=== PATIENT | female | born 1955 | race Hispanic/Latino ===

== ENCOUNTER 2020-11-22 21:03 | Observation (INO) | payer MEDICARE, OTHER ==
[~2020-11-22] VITALS: Ht 157.5 cm; Wt 75.2 kg
[2020-11-22 22:31] VITALS: BP 159/72
[2020-11-22 22:52] LABS: BILIRUBIN,URINE Negative (NEGATIVE); COLOR,URINE Dark Yellow (YELLOW); GLUCOSE, URINE (UA) Negative (NEGATIVE); KETONES,URINE Trace mg/dL (NEGATIVE); LEUKOCYTE ESTERASE ,URINE Trace (NEGATIVE); NITRATE,URINE Negative (NEGATIVE); OCCULT BLOOD,URINE Negative (NEGATIVE); PROTEIN,URINE Negative (NEGATIVE)
[2020-11-22] MEDS ORDERED: LACTATED RINGERS 1000ML 1,500 ML IV ONE (23:00)
[2020-11-22 23:06] LABS: APPEARANCE,URINE HAZY (CLEAR)
[2020-11-22 23:15] LABS: BACTERIA,URINE Rare /HPF (None Seen); MUCUS,URINE Few LPF (None Seen); RBC,URINE 0-1 /HPF (0-1); SQUAMOUS EPITHELIAL CELL,UR 0-2 /HPF (0-2)
[2020-11-22] MEDS ORDERED: IOHEXOL-350 75 ML VIAL IV ONE (23:28)
[2020-11-22 23:30] LABS: BASOPHILS % (AUTO) 0.7 % (0.0-5.0); EOSINOPHILS % (AUTO) 1.7 % (0.0-8.0); HEMATOCRIT 35.8 % (36-48); LYMPHOCYTES % (AUTO) 28.3 % (21.0-51.0); MEAN CORPUSCULAR HEMOGLOBIN 28.2 pg (27.0-33.0); MEAN CORPUSCULAR HGB CONC 33.2 g/dL (32.0-36.0); MEAN CORPUSCULAR VOLUME 84.8 fL (79-99); MONOCYTES % (AUTO) 6.5 % (3.0-13.0); NEUTROPHILS % (AUTO) 62.6 % (40.0-77.0); PLATELET COUNT (AUTO) 237 K/uL (130-400); RED BLOOD CELL COUNT(AUTO) 4.22 MIL/uL (4.00-5.50); RED CELL DISTRIBUTION WIDTH 12.9 % (11.0-15.5); WHITE BLOOD COUNT (AUTO) 8.7 K/uL (4.8-10.8)
[2020-11-22 23:47] LABS: CREATININE 0.5 mg/dL (0.5-1.5); POTASSIUM 3.6 mmol/L (3.5-5.1)
[2020-11-22 23:51] LABS: ALBUMIN 3.8 g/dL (3.5-5.0); BILIRUBIN,TOTAL 0.4 mg/dL (0.2-1.0); CRP QUANTITATIVE 3.7 mg/L (0.00-9.0); MAGNESIUM 1.9 mg/dL (1.80-2.40); TOTAL PROTEIN, SERUM 8.3 g/dL (6.0-8.3)
[2020-11-23] VITALS (9 sets, daily range): BP systolic 106–143; BP diastolic 60–88
[2020-11-23] MEDS: 0.9%NACL 1000ML 1,000 ML IV SCH ×2 (02:00→11:46)
[2020-11-23] MEDS ORDERED: NITROGLYCERIN 0.4 MG SL TAB SL PRN (02:00)
[2020-11-23] MEDS ORDERED: ACETAMINOPHEN 325 MG TAB PO PRN ×2 (02:00)
[2020-11-23 04:54] LABS: INR 1.05 (0.85-1.15); PROTHROMBIN TIME 11.4 SEC (9.6-11.6)
[2020-11-23 04:55] LABS: PARTIAL THROMBOPLASTIN TIME 23.4 SEC (26.3-35.5)
[2020-11-23 06:45] LABS: BASOPHILS % (AUTO) 0.8 % (0.0-5.0); EOSINOPHILS % (AUTO) 4.2 % (0.0-8.0); HEMATOCRIT 32.3 % (36-48); LYMPHOCYTES % (AUTO) 34.7 % (21.0-51.0); MEAN CORPUSCULAR HEMOGLOBIN 28.3 pg (27.0-33.0); MEAN CORPUSCULAR HGB CONC 34.1 g/dL (32.0-36.0); MONOCYTES % (AUTO) 6.3 % (3.0-13.0); NEUTROPHILS % (AUTO) 53.7 % (40.0-77.0); PLATELET COUNT (AUTO) 211 K/uL (130-400); RED BLOOD CELL COUNT(AUTO) 3.89 MIL/uL (4.00-5.50); RED CELL DISTRIBUTION WIDTH 12.8 % (11.0-15.5); WHITE BLOOD COUNT (AUTO) 6.4 K/uL (4.8-10.8)
[2020-11-23 07:06] LABS: ALBUMIN 3.5 g/dL (3.5-5.0); BILIRUBIN,TOTAL 0.5 mg/dL (0.2-1.0); CREATININE 0.5 mg/dL (0.5-1.5); MAGNESIUM 1.9 mg/dL (1.80-2.40); POTASSIUM 3.1 mmol/L (3.5-5.1); TOTAL PROTEIN, SERUM 7.3 g/dL (6.0-8.3)
[2020-11-23] MEDS ORDERED: GLUCAGON 1MG KIT 1 MG ML IM PRN (08:00)
[2020-11-23] MEDS ORDERED: DEXTROSE 50%-WATER 50 ML DISP.SYRIN IV PRN (08:00)
[2020-11-23] MEDS ORDERED: POTASSIUM CHLORIDE 20MEQ/100ML 100 ML IV PRN (08:00)
[2020-11-23] MEDS ORDERED: POTASSIUM CHLORIDE 10% ELIXIR 20 MEQ/15 ML UDCUP PO PRN ×2 (08:00→12:30)
[2020-11-23] MEDS ORDERED: LIDOCAINE HCL-MPF 1% 2ML VIAL IV PRN ×2 (08:00→12:30)
[2020-11-23] MEDS: FAMOTIDINE 20MG TAB PO SCH ×2 (08:34→19:55)
[2020-11-23] MEDS: ENOXAPARIN SODIUM 30 MG/0.3 ML SQ SCH (08:34)
[2020-11-23 08:41] LABS: HEMOGLOBIN A1C 6.3 % (4.0-6.0)
[2020-11-23] MEDS: INSULIN HUMULIN R 100 UNIT/ML 3ML SQ SCH ×3 (11:30→19:58)
[2020-11-23] MEDS ORDERED: CETI-89 PO (11:36)
[2020-11-23] MEDS ORDERED: AMLO-257 PO (11:36)
[2020-11-23] MEDS ORDERED: EZET10TA13 PO (11:36)
[2020-11-23] MEDS ORDERED: FLUT16H NASAL (11:36)
[2020-11-23] MEDS ORDERED: MONT10TA21 PO (11:36)
[2020-11-23] MEDS ORDERED: ALBU6.7H9 IH (11:36)
[2020-11-23] MEDS ORDERED: ALEN70TA80 PO (11:36)
[2020-11-23] MEDS ORDERED: LEVO75CA5 PO (11:36)
[2020-11-23] MEDS ORDERED: CHOL100040 PO (11:36)
[2020-11-23] MEDS ORDERED: LOPE2TAB26 PO (11:38)
[2020-11-23] MEDS ORDERED: CIPR-278 PO (11:38)
[2020-11-23] MEDS ORDERED: ETAN50CA SQ (11:38)
[2020-11-23] MEDS: KCL 20 MEQ ERTAB PO PRN ×3 (11:46→17:30)
[2020-11-23] MEDS ORDERED: KCL 20 MEQ ERTAB PO PRN (12:30)
[2020-11-23] MEDS ORDERED: POTASSIUM CHLORIDE 10MEQ/100ML 100 ML IV PRN (12:30)
[2020-11-23] MEDS: CEFTRIAXONE 1G VIAL IVP SCH (12:46)
[2020-11-23] MEDS: ONDANSETRON 4MG INJ IV PRN (16:18)
[2020-11-24 03:35] VITALS: BP 138/79
[2020-11-24] MEDS: 0.9%NACL 1000ML 1,000 ML IV SCH (04:32)
[2020-11-24] MEDS: INSULIN HUMULIN R 100 UNIT/ML 3ML SQ SCH ×3 (05:44→16:30)
[2020-11-24 07:00] VITALS: BP 137/66
[2020-11-24] MEDS: FAMOTIDINE 20MG TAB PO SCH (09:01)
[2020-11-24] MEDS: ENOXAPARIN SODIUM 30 MG/0.3 ML SQ SCH (09:02)
[2020-11-24 11:00] VITALS: BP 125/63
[2020-11-24] MEDS: ONDANSETRON 4MG INJ IV PRN (14:19)
[2020-11-24] MEDS: CEFTRIAXONE 1G VIAL IVP SCH (14:21)
[2020-11-24 15:00] VITALS: BP 148/75
[2020-11-24] MEDS ORDERED: LOPERAMIDE HCL 2 MG CAP PO ONE (17:30)
[2020-11-24 17:34] LABS: BASOPHILS % (AUTO) 1.1 % (0.0-5.0); EOSINOPHILS % (AUTO) 5.7 % (0.0-8.0); HEMATOCRIT 34.5 % (36-48); LYMPHOCYTES % (AUTO) 41.3 % (21.0-51.0); MEAN CORPUSCULAR HEMOGLOBIN 28.7 pg (27.0-33.0); MEAN CORPUSCULAR HGB CONC 33.3 g/dL (32.0-36.0); MONOCYTES % (AUTO) 6.1 % (3.0-13.0); NEUTROPHILS % (AUTO) 45.8 % (40.0-77.0); PLATELET COUNT (AUTO) 221 K/uL (130-400); RED BLOOD CELL COUNT(AUTO) 4.01 MIL/uL (4.00-5.50); WHITE BLOOD COUNT (AUTO) 6.6 K/uL (4.8-10.8)
[2020-11-24 17:44] LABS: CREATININE 0.6 mg/dL (0.5-1.5); POTASSIUM 4.1 mmol/L (3.5-5.1)
[2020-11-24 17:49] LABS: ALBUMIN 3.6 g/dL (3.5-5.0); BILIRUBIN,TOTAL 0.2 mg/dL (0.2-1.0); TOTAL PROTEIN, SERUM 7.6 g/dL (6.0-8.3)
[2020-11-24 17:59] LABS: CRP QUANTITATIVE 6.7 mg/L (0.00-9.0); MAGNESIUM 2.1 mg/dL (1.80-2.40); PHOSPHORUS 4.2 mg/dL (2.5-4.9); THYROID STIMULATING HORMONE 1.87 uIU/mL (0.36-3.74)
[2020-11-24] MEDS ORDERED: METR500T PO (18:29)
[2020-11-24] MEDS ORDERED: ONDA4TAB4 PO (18:29)
[2020-11-24 18:37] LABS: ERYTHROCYTE SEDIMENTATION RATE 10 MM/HR (0-30)
== END 2020-11-24 19:07 | disposition home or self-care (01) ==
LOC: EDH 21:03 → EDHIP 11-23 01:56 → 3BH 11-23 10:32
PROVIDERS: ADMIT Internal Medicine; ATTEND Internal Medicine
DX: K52.9 Noninfective gastroenteritis and colitis, unspecified (principal); E86.0 Dehydration; I10 Essential (primary) hypertension; E11.9 Type 2 diabetes mellitus without complications; M19.90 Unspecified osteoarthritis, unspecified site; E78.5 Hyperlipidemia, unspecified; I70.0 Atherosclerosis of aorta; E86.1 Hypovolemia; K76.0 Fatty (change of) liver, not elsewhere classified; Z90.710 Acquired absence of both cervix and uterus; Z90.49 Acquired absence of other specified parts of digestive tract
CPT/HCPCS: 36415 ×3; 71045; 74177; 80053 ×3; 81001; 82948 ×6; 83036; 83690; 83735 ×3; 84100; 84132; 84145; 84443; 85025 ×3; 85610; 85651; 85730; 86140 ×2; 87046; 87088; 87177; 93005; 96361; 96372 ×2; 96374; 96375; 96376; 99285; G0378 ×41; J0696 ×2; J1650 ×2; J2405 ×2; J7030 ×3; Q9967